=== PATIENT | female | born 1945 | race Caucasian/White ===

== ENCOUNTER 2016-04-23 17:28 | Emergency (ER) | payer MEDICARE ==
[~2016-04-23] VITALS: Ht 167.6 cm; Wt 88.5 kg
[2016-04-23] MEDS ORDERED: IV NORMAL SALINE 1000ML BAG 1,000 ML IV SCH (18:35)
[2016-04-23] MEDS ORDERED: ONDANSETRON PF 4 MG/2 ML VIAL. IV ONE (18:45)
[2016-04-23] MEDS ORDERED: KETOROLAC TROMETHAMINE 30 MG/ML SYRINGE. IV ONE (18:45)
--- NOTE | 2016-04-23 18:59 | EKG ---
[facility] [address] [place] [address] Test Date: 2016-04-23 Test Time: 17:45:12 Pat Name: JOSE D CHACKO Department: Room: Gender: F Supervisor Instrument Repair: : 1945 Requested By: Thalia CANALES Order Number: [id number] Reading MD: Denny San Measurements Intervals [place] Rate: 79 P: 51 WI: 188 QRS: -38 QRSD: 86 T: 35 QT: 398 QTc: 463 Interpretive Statements SINUS RHYTHM POSSIBLE LEFT ATRIAL ABNORMALITY ABNORMAL LEFT AXIS DEVIATION LEFT ANTERIOR FASCICULAR BLOCK QRS(T) CONTOUR ABNORMALITY CONSISTENT WITH ANTEROSEPTAL INFARCT AGE UNDETERMINED Electronically Signed On 04-26-2016 10:27:18 INTRANET SPECIALIST by Denny San
--- NOTE | 2016-04-23 19:23 | PHYS DOC ---
Past Medical History Past Medical History: Depression, GERD, High Cholesterol, Hypertension Past Surgical History: Hysterectomy, Other Additional Past Surgical Histo: HERNIA Alcohol Use: Heavy Additional Information: DRINKS 2 TO 3 SCOTCH & BACA A DAY Drug Use: None Adult General Chief Complaint Chief Complaint: NAUSEA/VOMITING/DIARRHA HPI HPI Patient is a 70 year old female who presents with with multiple episodes of nonbloody nonbilious emesis that started yesterday evening. She has only had 2 episodes of emesis today, but has significant nausea. She also notes developing mild headache to bilateral occiput gradually over this time. She has chills without measured fever. She denies diarrhea, dysuria, chest pain, dyspnea, abdominal pain, vision changes, dizziness, gait instability. She denies sick contacts. She states she usually drinks 3 drinks per day, but stopped drinking due to illness. She denies anxiety or tremor. Review of Systems Review of Systems Constitutional: Denies measured fever [] Eyes: Denies change in visual acuity, redness, or eye pain [] HENT: Denies nasal congestion or sore throat [] Respiratory: Denies cough or shortness of breath [] Cardiovascular: No additional information not addressed in HPI [] GI: Denies abdominal pain, bloody stools or diarrhea [] : Denies dysuria or hematuria [] Musculoskeletal: Denies back pain or joint pain [] Integument: Denies rash or skin lesions [] Neurologic: Denies focal weakness or sensory changes [] Endocrine: Denies polyuria or polydipsia [] Current Medications Current Medications Current Medications Medications (Trade) Dose Ordered Sig/Darrin Start Time Stop Time Status Last Admin Dose Admin Ketorolac Tromethamine (Toradol) 15 mg 1X ONCE 04/23/16 18:45 04/23/16 18:46 DC 04/23/16 18:57 15 MG Ondansetron HCl (Zofran) 4 mg 1X ONCE 04/23/16 18:45 04/23/16 18:46 DC 04/23/16 18:56 4 MG Potassium Chloride (Klor-Con) 40 meq 1X ONCE 04/23/16 20:00 04/23/16 20:01 Sodium Chloride (Iv Sodium Chloride 0.9% 1000ml Bag) 1,000 ml @ 1,000 mls/hr Q1H 04/23/16 18:35 04/23/16 19:34 DC 04/23/16 18:55 1,000 MLS/HR Allergies Allergies Allergies Coded Allergies Type Severity Reaction Last Updated Verified No Known Drug Allergies 04/23/16 No Physical Exam Physical Exam Constitutional: Well developed, well nourished, no acute distress, non-toxic appearance. [] HENT: Normocephalic, atraumatic, bilateral external ears normal, oropharynx moist, no oral exudates, nose normal. [] Eyes: PERRLA, EOMI. [] Neck: Normal range of motion, no tenderness, supple. [] Cardiovascular:Heart rate regular rhythm, no murmur [] Lungs & Thorax: Bilateral breath sounds clear to auscultation [] Abdomen: Bowel sounds normal, soft, no tenderness. [] Skin: Warm, dry, no erythema, no rash. [] Back: No tenderness, no CVA tenderness. [] Extremities: ROM intact, no edema. [] Neurologic: Alert and oriented X 3, normal motor function, normal sensory function, no focal deficits noted. [] Psychologic: Affect normal, judgement normal, mood normal. [] Current Patient Data Vital Signs Vital Signs Date Time Temp Pulse Resp B/P Pulse Ox O2 Delivery O2 Flow Rate FiO2 04/23/16 17:30 98.3 80 24 153/77 100 Room Air 98.3 Lab Values Laboratory Tests Test 04/23/16 19:00 Sodium Level 140mmol/L (136-145) Potassium Level 2.9mmol/L (3.5-5.1) *L Chloride Level 103mmol/L (98-107) Carbon Dioxide Level 25mmol/L (21-32) Anion Gap 12 (6-14) Blood Urea Nitrogen 11mg/dL (7-20) Creatinine 0.6mg/dL (0.6-1.0) Estimated GFR (Cockcroft-Gault) 98.8 Glucose Level 110mg/dL (70-99) H Calcium Level 9.0mg/dL (8.5-10.1) Total Bilirubin 0.5mg/dL (0.2-1.0) Direct Bilirubin 0.1mg/dL (0.0-0.2) Aspartate Amino Transferase (AST) 20U/L (15-37) Alanine Aminotransferase (ALT) 29U/L (14-59) Alkaline Phosphatase 107U/L (46-116) Total Protein 7.0g/dL (6.4-8.2) Albumin 3.5g/dL (3.4-5.0) Lipase 143U/L (73-393) Laboratory Tests 04/23/16 19:00 EKG EKG EKG as interpreted by me as normal sinus rhythm, rate 79, no ST-T changes, normal intervals, no ectopy Course & Med Decision Making Course & Med Decision Making Pertinent Labs and Imaging studies reviewed. (See chart for details) Workup reveals hypokalemia, this was replaced by mouth. She is tolerating oral intake and feeling much better and would like to go home. Return precautions given. She understands and agrees with plan. Dragon Disclaimer Dragon Disclaimer This electronic medical record was generated, in whole or in part, using a voice recognition dictation system. Departure Departure Impression: Primary Impression: Nausea and vomiting Disposition: HOME, SELF-CARE Condition: STABLE Referrals: SITA FREEDMAN (PCP) Patient Instructions: Nausea and Vomiting, [id number] Additional Instructions: Take Phenergan as needed for nausea. Follow-up with your primary care doctor. Return for any concerns. Scripts Promethazine Hcl 25 Mg Tablet1 Tab PO PRN Q6HRS PRN NAUSEA #10 TAB Prov:Thalia CANALES MD 04/23/16 Problem Qualifiers Primary Impression: Nausea and vomiting Vomiting type: unspecified Vomiting Intractability: non-intractable Qualified Code: R11.2 - Nausea with vomiting, unspecified Thalia CANALES MD Apr 23, 2016 19:23
[2016-04-23 19:42] LABS: ALBUMIN 3.5 g/dL (3.4-5.0); CREATININE 0.6 mg/dL (0.6-1.0); DIRECT BILIRUBIN 0.1 mg/dL (0.0-0.2); GFR 98.8; TOTAL BILIRUBIN 0.5 mg/dL (0.2-1.0)
[2016-04-23 19:45] LABS: POTASSIUM 2.9 mmol/L (3.5-5.1)
[2016-04-23] MEDS ORDERED: PROM12.56 PO (19:57)
[2016-04-23] MEDS ORDERED: PROM25TA10 PO (19:58)
[2016-04-23] MEDS ORDERED: POTASSIUM CHLORIDE 20 MEQ TABLET.ER. PO ONE (20:00)
[2016-04-23 20:15] VITALS: BP 178/91
== END 2016-04-23 20:28 | disposition home or self-care (01) ==
LOC: ER 17:28
DX: R11.2 Nausea with vomiting, unspecified (principal); E78.00 Pure hypercholesterolemia, unspecified; I10 Essential (primary) hypertension; K21.9 Gastro-esophageal reflux disease without esophagitis
CPT/HCPCS: 36415; 80048; 80076; 83690; 93005; 96361; 96374; 96375; 99285; J1885; J2405; J7030

== ENCOUNTER → 2020-04-14 | Outpatient (CLI) | payer MEDICARE ==
[~2020-04-14] MED LIST: AMLO-187 PO; CYCL10TA2 PO; FLUO40CA2 PO; FLUT1DIS IH; GUAI600T47 PO; HYDR-2145 PO; LIDO1ADH63 TP; LOSA100T14 PO; MAGN400T5 PO; MULT-121 PO; OMEG10005 PO; OXYC5CAP PO; POTA10TA12 PO; PREG150C PO; PROM12.58 PO; PROM25TA10 PO; UBID30CA9 PO; VENTOLIN HFA18 GM INH; WARF-31 PO
[2020-04-14 09:37] LABS: BASO % 1 % (0-3); EOS # 0.2 x10^3/uL (0.0-0.7); EOS % 4 % (0-3); HEMATOCRIT 39.3 % (36.0-47.0); HEMOGLOBIN 13.8 g/dL (12.0-15.5); LYMPH # 0.9 x10^3/uL (1.0-4.8); LYMPH % 17 % (24-48); MEAN CORPUSCULAR HEMOGLOBIN 32 pg (25-35); MEAN CORPUSCULAR HGB CONC 35 g/dL (31-37); MEAN CORPUSCULAR VOLUME 92 fL (79-100); MONO # 0.5 x10^3/uL (0.0-1.1); MONO % 9 % (0-9); NEUT # 3.9 x10^3/uL (1.8-7.7); NEUT % 70 % (31-73); PLATELET COUNT 248 x10^3/uL (140-400); RED BLOOD COUNT 4.26 x10^6/uL (3.50-5.40); RED CELL DISTRIBUTION WIDTH 11.7 % (11.5-14.5); WHITE BLOOD COUNT 5.6 x10^3/uL (4.0-11.0)
[2020-04-14 09:44] LABS: ALBUMIN 3.7 g/dL (3.4-5.0); C-REACTIVE PROTEIN 2.9 mg/L (0-3.3); CALCIUM 8.8 mg/dL (8.5-10.1); CREATININE 0.7 mg/dL (0.6-1.0); GFR 81.8; POTASSIUM 4.3 mmol/L (3.5-5.1)
--- NOTE | 2020-04-14 13:21 | EKG ---
[facility] [address] [place] [address] Test Date: 2020-04-14 Test Time: 12:58:26 Pat Name: JOSE D CHACKO Department: Room: Gender: F Cherry Pitter: MR MOCTEZUMAB: 1945 Requested By: SHAAN NAVA Order Number: [id number] Reading MD: Davie Kwan Measurements Intervals [place] Rate: 79 P: 37 MN: 192 QRS: -31 QRSD: 84 T: 12 QT: 384 QTc: 441 Interpretive Statements SINUS RHYTHM ABNORMAL LEFT AXIS DEVIATION LEFT ANTERIOR FASCICULAR BLOCK QRS(T) CONTOUR ABNORMALITY CONSIDER ANTEROSEPTAL MYOCARDIAL DAMAGE ABNORMAL ECG Electronically Signed On 04-14-2020 16:19:59 PAMPHLET DISTRIBUTOR by Davie Kwan
--- NOTE | 2020-04-14 14:22 | RAD ---
EXAM: Chest, 2 views. HISTORY: Hypertension COMPARISON: None. FINDINGS: 2 views of the chest are obtained. There are suspected chronic interstitial changes. There is no consolidation, pleural effusion or pneumothorax. The heart is normal in size IMPRESSION: No acute pulmonary finding. Electronically signed by: Nusrat Araya MD (04/14/2020 2:19 PM) [id number]
[2020-04-15 00:11] LABS: HEMOGLOBIN A1C 5.8 % (4.8-5.6)
== END ==
LOC: SURGPAT 12:56
PROVIDERS: ATTEND Orthopaedic Surgery
DX: Z01.818 Encounter for other preprocedural examination (principal); M16.52 Unilateral post-traumatic osteoarthritis, left hip; Z96.652 Presence of left artificial knee joint
CPT/HCPCS: 36415; 71046; 80048; 82040; 82306; 83036; 85025; 85610; 85730; 86140; 87641; 93005

== ENCOUNTER → 2020-05-02 | Outpatient (CLI) | payer MEDICARE ==
--- NOTE | 2020-05-02 16:22 | CARD ---
MR#: [id number] Date of Study: 05/02/2020 Ordering Physician: RITA ISAAC, Referring Physician: RITA ISAAC, Tech: Rachna Stern, [facility] APPROVED REPORT EXAM: Two-dimensional and M-mode echocardiogram with Doppler and color Doppler. Other Information Quality : AverageHR: 74bpm INDICATION Pre-Op RISK FACTORS Hypertension 2D DIMENSIONS RVDd3.2 (2.9-3.5cm)Left Atrium(2D)3.3 (1.6-4.0cm) IVSd1.6 (0.7-1.1cm)Aortic Root(2D)3.0 (2.0-3.7cm) LVDd4.2 (3.9-5.9cm)LVOT Diameter2.1 (1.8-2.4cm) PWd1.1 (0.7-1.1cm)LVDs3.5 (2.5-4.0cm) FS (%) 17.8 %SV29.8 ml LVEF(%)37.3 (>50%) Aortic Valve AoV Peak Anirudh.164.8cm/sAoV VTI27.6cm AO Peak GR.10.9mmHgLVOT Peak Anirudh.125.6cm/s LVOT VTI 26.13cmAO Mean GR.6mmHg CHUCHO (VMAX)1.92iv4MQH (VTI)3.18cm2 Mitral Valve MV E Rwclofqj37.0cm/sMV DECEL YKDQ320vo MV A Wexbugys778.3cm/sMV E Mean Gr.3mmHg MV DSC350qyG/A Ratio0.5 MVA (PHT)2.13cm2 TDI E/Lateral E'12.4E/Medial E'12.1 Pulmonary Valve PV Peak Ilzywdgv74.3cm/sPV Peak Grad.4mmHg Tricuspid Valve TR P. Getwauiw972qc/sRAP ELQOTZBP5deEc TR Peak Gr.86gmFwJEZU69uvLq LEFT VENTRICLE The left ventricle is normal size. There is mild to moderate concentric left ventricular hypertrophy. The left ventricular systolic function is normal and the ejection fraction is within normal range. T he Ejection Fraction is 50-55%. There is normal LV segmental wall motion. Transmitral Doppler flow pa ttern is Grade I-abnormal relaxation pattern. RIGHT VENTRICLE The right ventricle is normal size. There is normal right ventricular wall thickness. The right ventr icular systolic function is normal. ATRIA The left atrium size is normal. The right atrium size is normal. The interatrial septum is intact wit h no evidence for an atrial septal defect or patent foramen ovale as noted on 2-D or Doppler imaging. AORTIC VALVE The aortic valve is trileaflet but appears moderately thickened. Doppler and Color Flow revealed trac e aortic regurgitation. There is no significant aortic valvular stenosis. Calculated aortic valve are a is 3.4 cm2 with maximum pressure gradient of 13 mmHg and mean pressure gradient of 6 mmHg. MITRAL VALVE The mitral valve is normal in structure and function. There is no evidence of mitral valve prolapse. There is no mitral valve stenosis. Doppler and Color-flow revealed trace mitral regurgitation. TRICUSPID VALVE The tricuspid valve is normal in structure and function. Doppler and Color Flow revealed trace tricus pid regurgitation with an estimated PAP of 26 mmHg. There is no tricuspid valve stenosis. PULMONIC VALVE The pulmonic valve is not well visualized. Doppler and Color Flow revealed trace pulmonic valvular re gurgitation. There is no pulmonic valvular stenosis. GREAT VESSELS The aortic root is normal in size. The ascending aorta is Mildly dilated measuring 3.8 cm. The IVC is normal in size and collapses >50% with inspiration. PERICARDIAL EFFUSION There is no evidence of significant pericardial effusion. Critical Notification Critical Value: No <Conclusion> The left ventricular systolic function is normal and the ejection fraction is within normal range. Th e Ejection Fraction is 50-55%. There is normal LV segmental wall motion. The ascending aorta is mildly dilated measuring 3.8 cm. Signed by : Denny San, Electronically Approved : 05/02/2020 16:22:33
== END ==
LOC: ECHO 08:50
PROVIDERS: ATTEND Internal Medicine Cardiovascular Disease
DX: Z01.810 Encounter for preprocedural cardiovascular examination (principal); I51.7 Cardiomegaly
CPT/HCPCS: 93306

== ENCOUNTER → 2020-05-02 | Outpatient (CLI) | payer MEDICARE | LOC: LAB 08:45 | PROVIDERS: ATTEND Orthopaedic Surgery | DX: Z01.812 Encounter for preprocedural laboratory examination (principal); M16.12 Unilateral primary osteoarthritis, left hip; Z20.822 Contact with and (suspected) exposure to COVID-19 | CPT/HCPCS: 87426; U0003 ==

== ENCOUNTER 2020-05-06 08:39 | Observation (INO) | payer MEDICARE, OTHER ==
[2020-05-06] VITALS (7 sets, daily range): BP systolic 104–142; BP diastolic 73–91
[~2020-05-06] VITALS: Ht 167.6 cm; Wt 88.0 kg
[~2020-05-06 08:39] MED LIST changes: +ACETAMINOPHEN 500 MG TABLET PO PRN; +GABAPENTIN 300 MG CAPSULE. PO PRN; +IV RINGERS,LACTATED 1000ML 1,000 ML IV SCH; +MELOXICAM 7.5 MG TABLET PO PRN; +MORPHINE SULFATE 5 MG, KETOROLAC 30MG VIAL 30 MG, ROPIVacaine 0.5% PF 60 ML, EPINEPHrin... INT ART ONE; -OXYC5CAP PO; +TRANEXAMIC ACID 1,000 MG in IV NS 50ML -- 1ST BAG INJ ONE; +TRANEXAMIC ACID 1,000 MG in IV NS 50ML -- 2ND BAG INJ ONE; -WARF-31 PO; +fentaNYL PF VIAL 100 MCG/2 ML VIAL IVP PRN
[2020-05-06] MEDS ORDERED: TRANEXAMIC ACID in NS IVPB 100 ML ONE (11:47)
[2020-05-06] MEDS ORDERED: NEOSTIGMINE METHYLSULFATE 5 MG/5 ML SYRINGE. ONE (11:48)
[2020-05-06] MEDS ORDERED: PROPOFOL 10 MG/ML (20ML) VIAL. IV ONE (11:48)
[2020-05-06] MEDS ORDERED: ROCURONIUM 50 MG/5 ML VIAL. ONE (11:48)
[2020-05-06] MEDS ORDERED: fentaNYL PF VIAL 100 MCG/2 ML VIAL ONE ×2 (11:48→15:53)
[2020-05-06] MEDS ORDERED: PHENYLEPHRINE in 0.9% NACL PF 1 MG/10 ML SYRINGE. IV ONE (11:48)
[2020-05-06] MEDS ORDERED: SEVOFLURANE > 120 MINUTES. IH ONE (11:48)
[2020-05-06] MEDS ORDERED: GLYCOPYRROLATE 1 MG/5 ML VIAL. ONE (11:48)
[2020-05-06] MEDS ORDERED: LIDOCAINE 2% PF 5 ML VIAL. ONE (11:49)
[2020-05-06] MEDS ORDERED: ONDANSETRON PF 4 MG/2 ML VIAL. ONE (11:49)
[2020-05-06] MEDS ORDERED: DEXAMETHASONE SOD PHOS 4 MG/ML VIAL ONE (11:49)
[2020-05-06] MEDS ORDERED: WARF-31 PO (11:51)
[2020-05-06 12:19] LABS: PROTHROMBIN TIME PATIENT 12.9 SEC (11.7-14.0)
[2020-05-06] MEDS ORDERED: VANCOMYCIN 1 GM VIAL. ONE ×2 (13:02→15:17)
[2020-05-06] MEDS ORDERED: ePHEDrine PF IN SALINE 50 MG/10 ML SYRINGE. IV ONE (14:13)
[2020-05-06] MEDS: fentaNYL PF VIAL 100 MCG/2 ML VIAL IVP PRN ×2 (15:58→16:02)
--- NOTE | 2020-05-06 15:59 | PDOC4 ---
Operative Note Operative Note Date of surgery: 05/06/2020 Preoperative diagnosis: Degenerative joint disease left hip Postoperative diagnosis: Same Operative procedure: Left total hip arthroplasty with posterior approach Surgeon Nithin [place] Driver: Daniel calvillo Anesthesia: General Estimated blood loss: 200 cc Complications: None Drains: None Operative indications: Please see my orthopedic clinic note and dictated history and physical for detailed operative indications and note that we covered risks benefits postoperative course of the procedure. All her questions were answered and she wishes to proceed with surgical evaluation and treatment having given informed consent Operative text: Patient was identified procedure verified patient placed in the lateral decubitus position on the operating table using the Stulberg hip positioner after adequate amounts of general anesthesia were administered. All bony prominences were well-padded and left hip was prepped and draped in the standard sterile fashion. After timeout was performed patient procedure identified and verified an incision was made curvilinear centered over the greater trochanter and dissection carried out down to the iliotibial band and gluteal fascia which were split in line with their fibers. A Charnley retractor was placed external rotators were divided from their insertion and hip capsule was split in a T fashion. Hip was then dislocated and femoral neck cut was made using a Freida Avenir broach for reference and the femoral head was removed and sized noting severe degenerative change and sent for pathological evaluation. Reaming was carried out from a size 49 to a size 53 with a size 54 cluster hole cup placed in proper version and alignment and achieved a very solid scratch fit and therefore no screw fixation was applied. A 36 mm vitamin E liner was impacted into place. Femur was then prepared with a box osteotome rattail rasp and successive size broaching up to a size 5 femoral trial broach which provided excellent stability and fit within the canal. Trial fitting with a +3.5 36 mm head with a high offset neck to reproduce leg length and offset appropriately. Trial components were removed and a size 5 high offset collared Avenir stem was impacted into place with a +3.5 ceramic 36 mm head impacted to secure the Kwan taper. Excellent stability and range of motion were noted and leg length reproduced according to measurements from the contralateral side. Thorough irrigation carried out with dilute Betadine solution and then washed further with normal saline solution and pulse lavage. Intra-articular mixture was i njected subperiosteally throughout the joint capsule and subcutaneous areas. Hip capsule was repaired with max braid suture and external rotators attached transosseously with max braid suture. Fascia was closed with #1 PDS strata fix suture in a running fashion subcutaneous closure with buried Vicryl skin closure with subcuticular Monocryl and a rita dressing was applied. Patient was returned to recovery room in stable condition having tolerated the procedure well. Daniel calvillo was present for the procedure and assisted in the patient positioning prepping draping retraction closure and dressings SHAAN NAVA MD May 06, 2020 15:59
[2020-05-06] MEDS ORDERED: PROCHLORPERAZINE 5 MG TABLET. PO PRN (16:00)
[2020-05-06] MEDS ORDERED: DEXTROSE 50% 25 GM / 50ML DISP.SYRIN. IV PRN (16:00)
[2020-05-06] MEDS ORDERED: ZOLPIDEM 5 MG TABLET. PO PRN (16:00)
[2020-05-06] MEDS ORDERED: MORPHINE SULFATE 2 MG/ML VIAL. IVP PRN (16:00)
[2020-05-06] MEDS ORDERED: diphenhydrAMINE 50 MG/ML VIAL IVP PRN (16:00)
[2020-05-06] MEDS ORDERED: CALCIUM CARBONATE 500 MG TAB.CHEW PO PRN (16:00)
[2020-05-06] MEDS ORDERED: fentaNYL PF VIAL 100 MCG/2 ML VIAL IVP PRN (16:00)
[2020-05-06] MEDS ORDERED: 0.9 % SODIUM CHLORIDE 10 ML DISP.SYRIN. IV PRN (16:00)
[2020-05-06] MEDS ORDERED: MORPHINE SULFATE 2 MG/ML VIAL. ONE (16:06)
[2020-05-06] MEDS: MORPHINE SULFATE 2 MG/ML VIAL. IVP PRN ×2 (16:10→16:17)
[2020-05-06] MEDS ORDERED: LIDOCAINE (700MG/PATCH) PATCH. TP PRN (16:15)
[2020-05-06] MEDS ORDERED: HYDROmorphone 2 MG/ML VIAL ONE (16:24)
[2020-05-06] MEDS: HYDROmorphone 2 MG/ML VIAL IVP PRN ×4 (16:26→16:52)
[2020-05-06] MEDS ORDERED: ALBUTEROL SULFATE 2.5 MG/3 ML NEBU. NEB PRN (16:30)
[2020-05-06] MEDS ORDERED: PROCHLORPERAZINE 10 MG/2 ML VIAL. ONE (16:31)
[2020-05-06] MEDS: PROCHLORPERAZINE 10 MG/2 ML VIAL. IVP PRN ×2 (16:32→16:46)
--- NOTE | 2020-05-06 16:43 | RAD ---
EXAM: XR BILATERAL HIP (WITH OR WITHOUT PELVIS) LEFT 2 VIEWS 05/06/2020 4:08 PM CLINICAL INDICATION: Postop left total hip COMPARISON: Left hip radiograph 01/28/2020 TECHNIQUE: AP view of the pelvis and AP and crosstable lateral view of the left hip FINDINGS: There is a new left total hip prosthesis in expected alignment. No periprosthetic fracture . Expected postoperative soft tissue gas in the left thigh. Mild medial right hip joint space narrowi ng is unchanged. There is a 8 mm ovoid sclerotic focus projecting over the right inferior pubic ramus . Lumbar degenerative disc disease is noted. IMPRESSION: 1. Immediate postoperative changes of left total hip arthroplasty. 2. Mild right hip osteoarthrosis. 3. Unchanged 8 mm sclerotic focus projecting over the right inferior pubic ramus. Bone island or othe r sclerotic bone lesion is possible. Electronically signed by: Yadira Coker MD (05/06/2020 4:40 PM) [id number]
[2020-05-06] MEDS ORDERED: WARFARIN 7.5 MG TABLET. PO ONE (17:00)
--- NOTE | 2020-05-06 17:25 | NUR ---
Late entry: Admitted to unit by bed from PACU. Drowsy but awakens. C/o being hot. Resting on right side with pillow between knees. Dressing on right hip d/i. SCD's on bilaterally with TEDS. O2 at 4l per n/c and sating 97%. IVF's intact and infusing. Side rails up x's 3 with call light in reach. Got pt a fan and turn down thermostat. Cont. monitor.
[2020-05-06] MEDS: ALBUTEROL SULFATE 2.5 MG/3 ML NEBU. NEB SCH (19:55)
[2020-05-06] MEDS: BUDESONIDE 0.5 MG/2 ML NEBU. NEB SCH (19:56)
[2020-05-06] MEDS: PREGABALIN 75 MG CAPSULE PO SCH (20:27)
[2020-05-06] MEDS: CYCLOBENZAPRINE 10 MG TABLET. PO SCH (20:27)
[2020-05-06] MEDS: PATCH REMOVAL. MC SCH (20:28)
[2020-05-06] MEDS: ONDANSETRON PF 4 MG/2 ML VIAL. IVP SCH (20:38)
[2020-05-06] MEDS: ONDANSETRON ODT 4 MG TAB.RAPDIS. PO SCH (20:39)
[2020-05-07] MEDS: ONDANSETRON PF 4 MG/2 ML VIAL. IVP SCH ×3 (00:48→12:00)
[2020-05-07] MEDS: oxyCODONE IR 5 MG TABLET PO PRN ×3 (00:49→20:42)
[2020-05-07] MEDS: ONDANSETRON ODT 4 MG TAB.RAPDIS. PO SCH ×3 (00:49→12:00)
[2020-05-07 01:47] VITALS: BP 148/76
--- NOTE | 2020-05-07 01:48 | NUR ---
Patient had attempted to void without success. Patient states "I want to try later, I don't have the urge yet." Informed Patient of need to void or will need straight catheter placed to empty bladder. Patient wanting to try later. Call light in reach, will monitor.
--- NOTE | 2020-05-07 04:07 | NUR ---
Patient attempted to void and unsuccessful. Bladder scan revealed 322 cc. Patient drinking water and declined straight catheter at this time. Patient states "I'LL drink this water and try again. Call light in reach.
[2020-05-07 04:46] LABS: PROTHROMBIN TIME PATIENT 13.3 SEC (11.7-14.0)
[2020-05-07] MEDS: IV NORMAL SALINE 1000ML BAG 1,000 ML IV SCH ×2 (05:05→17:06)
[2020-05-07] MEDS: traMADol 50 MG TABLET PO SCH ×4 (05:06→23:17)
[2020-05-07 05:12] VITALS: BP 166/80
--- NOTE | 2020-05-07 05:13 | NUR ---
Patient up to restroom, voided 100cc clear yellow urine in hat and void x 1 missed hat. Patient 0600 Tramadol given early per Patient request so she can sleep.
[2020-05-07] MEDS ORDERED: MAGNESIUM HYDROXIDE 2,400 MG/30 ML ORAL.SUSP. PO PRN (06:00)
[2020-05-07] MEDS ORDERED: GABAPENTIN 100 MG CAPSULE. PO SCH (06:00)
[2020-05-07] MEDS: BUDESONIDE 0.5 MG/2 ML NEBU. NEB SCH ×2 (07:31→20:57)
[2020-05-07] MEDS: ALBUTEROL SULFATE 2.5 MG/3 ML NEBU. NEB SCH ×2 (07:31→20:57)
[2020-05-07] MEDS: FERROUS SULFATE 325 MG TABLET. PO SCH ×2 (08:16→17:05)
[2020-05-07] MEDS: CYCLOBENZAPRINE 10 MG TABLET. PO SCH ×2 (08:16→20:42)
[2020-05-07] MEDS: FLUoxetine HCL 20 MG CAPSULE PO SCH (08:17)
[2020-05-07] MEDS: MULTIVITAMIN with MINERAL TABLET. PO SCH (08:17)
[2020-05-07] MEDS: ACETAMINOPHEN 500 MG TABLET PO SCH ×4 (08:17→23:17)
[2020-05-07] MEDS: POTASSIUM CHLORIDE 10 MEQ TABLET.ER. PO SCH (08:17)
[2020-05-07] MEDS: SENNOSIDES/DOCUSATE 8.6/50MG TABLET. PO SCH (08:17)
[2020-05-07] MEDS: MELOXICAM 7.5 MG TABLET PO SCH (08:18)
[2020-05-07] MEDS: PREGABALIN 75 MG CAPSULE PO SCH ×3 (08:18→20:43)
--- NOTE | 2020-05-07 08:24 | PDOC ---
PROGRESS NOTES Date of Service DATE: 05/07/20 TIME: 08:17 Subjective Subjective Problems overnight: Up and around to the bathroom, hip is sore but functional, eating well no other complaints Objective Vital Signs Vital Signs Date Time Temp Pulse Resp B/P (MAP) Pulse Ox O2 Delivery O2 Flow Rate FiO2 05/07/20 07:32 98 Room Air 05/07/20 06:06 20 05/07/20 05:12 97.9 84 166/80 (108) 97.9 05/06/20 23:14 2.0 Physical Exam Hip incision clean dry intact with rita dressing intact, distal neurovascular status intact Labs Laboratory Tests Test 05/06/20 11:50 05/07/20 03:40 Prothrombin Time 12.9 SEC (11.7-14.0) 13.3 SEC (11.7-14.0) Prothromb Time International Ratio 1.0 (0.8-1.1) 1.1 (0.8-1.1) Activated Partial Thromboplast Time 30 SEC (24-38) Laboratory Tests Test 05/06/20 11:50 05/07/20 03:40 Prothrombin Time 12.9 SEC (11.7-14.0) 13.3 SEC (11.7-14.0) Prothromb Time International Ratio 1.0 (0.8-1.1) 1.1 (0.8-1.1) Activated Partial Thromboplast Time 30 SEC (24-38) Imaging Excellent positioning total hip arthroplasty Assessment Assessment POD#1 left total hip arthroplasty Plan Plan of Care Mobilize with physical therapy standard total hip precautions weightbearing as tolerated Warfarin anticoagulation per pharmacy Postop placement when stable Justicifation of Admission Dx: Justifications for Admission: Justification of Admission Dx: Yes (Requiring IV pain medications, currently adjusting) SHAAN NAVA MD May 07, 2020 08:24
[2020-05-07] MEDS: hydroCHLOROthiazide 25 MG TABLET PO SCH (08:28)
[2020-05-07] MEDS: amLODIPine BESYLATE 10 MG TABLET PO SCH (08:29)
[2020-05-07] MEDS: LOSARTAN POTASSIUM 50 MG TABLET. PO SCH (08:30)
[2020-05-07 09:24] LABS: HEMATOCRIT 33.3 % (36.0-47.0); HEMOGLOBIN 11.3 g/dL (12.0-15.5)
[2020-05-07] MEDS ORDERED: ONDANSETRON ODT 4 MG TAB.RAPDIS. PO PRN (12:00)
[2020-05-07] MEDS ORDERED: ONDANSETRON PF 4 MG/2 ML VIAL. IVP PRN (12:00)
--- NOTE | 2020-05-07 12:14 | NUR ---
Tolerating diet and taking fluids well. No c/o nausea. Zofran not given.
[2020-05-07] MEDS ORDERED: BISACODYL 10 MG SUPP.RECT. PR PRN (16:00)
--- NOTE | 2020-05-07 16:11 | NUR ---
Pharmacy Warfarin Dosing Note S:Pharmacy consulted to assist with anticoagulation therapy started with target INR: 1.6 - 2.5 O:JOSE D CHACKO is a 74 year old F with LULU LABS: Last INR: 1.1 Last HGB: 11.3 Last HCT: 33.3 Last PLT: Last dose of 7.5 mg given on 05/06/20 at 2029 Previous Regimen: Vitamin K given: Drug Interaction Changes: Ongoing Drug Interactions: A:INR of 1.1 is below desired range. Target range for this patient is: 1.6 - 2.5 P: Warfarin dose: 5 mg Today at 1600 Bridge Therapy: Next INR due IN AM Pharmacy anticoagulation service will continue to follow. JUAN CARLOS [facility], 05/07/20 1619
[2020-05-07] MEDS ORDERED: WARFARIN 5 MG TABLET. PO ONE (16:30)
[2020-05-07 17:59] VITALS: BP 131/73
[2020-05-07] MEDS: PATCH REMOVAL. MC SCH (20:43)
[2020-05-08] MEDS: oxyCODONE IR 5 MG TABLET PO PRN ×4 (04:41→16:06)
[2020-05-08] MEDS: traMADol 50 MG TABLET PO SCH ×2 (06:15→12:07)
[2020-05-08 06:18] VITALS: BP 138/77
[2020-05-08] MEDS: ALBUTEROL SULFATE 2.5 MG/3 ML NEBU. NEB SCH (07:19)
[2020-05-08] MEDS: BUDESONIDE 0.5 MG/2 ML NEBU. NEB SCH (07:19)
[2020-05-08] MEDS: MULTIVITAMIN with MINERAL TABLET. PO SCH (08:29)
[2020-05-08] MEDS: hydroCHLOROthiazide 25 MG TABLET PO SCH (08:29)
[2020-05-08] MEDS: CYCLOBENZAPRINE 10 MG TABLET. PO SCH (08:32)
[2020-05-08] MEDS: PREGABALIN 75 MG CAPSULE PO SCH ×2 (08:32→15:14)
[2020-05-08] MEDS: MELOXICAM 7.5 MG TABLET PO SCH (08:32)
[2020-05-08] MEDS: FERROUS SULFATE 325 MG TABLET. PO SCH ×2 (08:32→15:16)
[2020-05-08] MEDS: ACETAMINOPHEN 500 MG TABLET PO SCH ×2 (08:32→15:15)
[2020-05-08] MEDS: SENNOSIDES/DOCUSATE 8.6/50MG TABLET. PO SCH (08:33)
[2020-05-08] MEDS: POTASSIUM CHLORIDE 10 MEQ TABLET.ER. PO SCH (08:33)
[2020-05-08] MEDS: FLUoxetine HCL 20 MG CAPSULE PO SCH (08:33)
[2020-05-08] MEDS ORDERED: OXYC5CAP PO (08:38)
--- NOTE | 2020-05-08 08:41 | SNU/HH DC ---
DISCHARGE WITH HOME HEALTH DISCHARGE INFORMATION: Condition on Discharge: Stable CODE STATUS: Code Status: Full HOME HEALTH: Face to Face: I certify this patient is under my care and that I, or a nurse practitioner or physician's hotel assistant general manager working with me, had a face to face encounter that meets the physician face to face encounter requirements with this patient on [05/08/2020]. Medical Complications: S/P Joint Replacement Retirement For: Assess/Skilled Observatio RN For Eval/Treatment: Yes Physical Therapy For: Evalulation/Treatment Pt Meets Homebound Status: Limited distance walking POST DISCHARGE ORDERS: Activity Instructions for Disc: Other, see below (Avoid extreme hip flexion or any internal rotation) Weight Bearing Status after Di: As tolerated Bathing Instructions: Shower-keep dressing dry, No Tub Bath until see DIET AFTER DISCHARGE: Regular Wound/Incision Care: Do not change dressing (Call if dressing saturated, otherwise keep dressing intact and when suction stops, cut tail and tape over to maintain seal) FOLLOW-UP: Follow up with: Dr. Weller 2 weeks postop, [phone] for appointment Warfarin Follow UP: [place] pharmacy to direct warfarin dosage and testing TREATMENT/EQUIPMENT ORDERS: Adaptive Equipment Issued: Front wheeled walker CERTIFICATION STATEMENT: Certification Statement: Certification Statement: Based on the above finding, I certify that this patient is confined to the home and needs intermittent senior living care, physical therapy and/or speech therapy, or continues to need occupational therapy.~ This patient is under my care, and I have initiated the establishment of the plan of care.~ This patient will be followed by myself or a community physician who will periodically review the plan of care. Home Meds Reported Medications Warfarin Sodium (WARFARIN SODIUM) 5 Mg Tablet, 5 MG PO x1 PRN for hs surgery, #30 TAB 05/06/20 Potassium Chloride (POTASSIUM CHLORIDE ) 10 Meq Tab.sr.24h, 8 MEQ PO DAILY for SUPPLEMENT, TAB.SR 05/01/20 Guaifenesin (MUCINEX) 600 Mg Tablet.er, 800 MG PO BID for control mucous, TAB.SR 05/01/20 [place]-3 Fatty Acids (OMEGA-3) 1,000 Mg Capsule, 1000 MG PO DAILY for supplement, CAP 05/01/20 Magnesium Oxide (MAGNESIUM OXIDE) 400 Mg Tablet, 400 MG PO DAILY for supplement, TAB 05/01/20 Hydrochlorothiazide (HYDROCHLOROTHIAZIDE TABLET ) 25 Mg Tablet, 25 MG PO DAILY for DIURETIC, TAB 0 Refills 05/01/20 Fluoxetine Hcl (FLUOXETINE HCL) 40 Mg Capsule, 40 MG PO DAILY for depression, CAP 05/01/20 Cyclobenzaprine Hcl (CYCLOBENZAPRINE HCL) 10 Mg Tablet, 10 MG PO BID for muscle spasm/pain, TAB 05/01/20 Multivitamin (MULTIPLE VITAMINS) 1 Each Tablet, 1 EACH PO DAILY for supplement, TAB 05/01/20 Ubidecarenone (COQ-10) 30 Mg Capsule, 30 MG PO DAILY for supplement, CAP 05/01/20 Amlodipine Besylate (AMLODIPINE BESYLATE) 10 Mg Tablet, 10 MG PO DAILY for bp control, TAB 05/01/20 Albuterol Sulfate (VENTOLIN HFA INHALER) 18 Gm Hfa.aer.ad, 2 PUFF INH PRN Q4- 6HRS PRN for wh, EACH 0 Refills 05/01/20 Fluticasone/Salmeterol (ADVAIR 100-50 DISKUS) 1 Each Disk.w.dev, 1 INH IH BID for asthma, EACH 05/01/20 Pregabalin (LYRICA) 150 Mg Capsule, 150 MG PO TID for depression for 30 Days, CAP 0 Refills 05/01/20 Losartan Potassium (LOSARTAN POTASSIUM) 100 Mg Tablet, 100 MG PO DAILY for HYPERTENSION, TAB 05/01/20 Lidocaine (Lidocaine) 1 Each Adh..patch, 1 EACH TP PRN DAILY PRN for back pain, PATCH 05/01/20 SHAAN WELLER MD May 08, 2020 08:41
[2020-05-08 09:51] LABS: PROTHROMBIN TIME PATIENT 15.6 SEC (11.7-14.0)
--- NOTE | 2020-05-08 11:14 | NUR ---
Pharmacy Warfarin Dosing Note S: Pharmacy consulted to assist with anticoagulation therapy started 05/05/20 O: JOSE D CHACKO is a 74 year old F with LULU LABS: Last INR: 1.3 Last HGB: 11.3 Last HCT: 33.3 Last PLT: Last dose of 5 mg given on 05/07/20 at 1705 A:INR of 1.3 is below desired range. Target range for this patient is: 1.6 - 2.5 P: Warfarin dose: 5 mg prior to discharge and daily Bridge Therapy: none Next INR due Friday 05/12 to be drawn by LADARIUS RN Pharmacy anticoagulation service will continue to follow. Mirella Lord RPH, 05/08/20 [id number]
[2020-05-08] MEDS: LOSARTAN POTASSIUM 50 MG TABLET. PO SCH (12:08)
[2020-05-08] MEDS: amLODIPine BESYLATE 10 MG TABLET PO SCH (12:08)
[2020-05-08 12:10] VITALS: BP 140/77
[2020-05-08 12:30] LABS: HEMATOCRIT 30.6 % (36.0-47.0); HEMOGLOBIN 10.6 g/dL (12.0-15.5)
[2020-05-08] MEDS ORDERED: WARF-31 PO (12:45)
[2020-05-08] MEDS ORDERED: WARFARIN 5 MG TABLET. PO SCH (13:00)
[2020-05-08 16:00] VITALS: BP 144/77
--- NOTE | 2020-05-08 16:09 | NUR ---
reviewed written discharge instructions with Juliana. reviewed home services such as OT,PT and lab draws. reviewed new medications such as pain medication and side effects. reviewed restrictions to activities of daily living such as bathing. she has an Aquacel and care of this.restrictions to driving Hip precautions and follow up with Dr. Weller. she verbalized understanding of these. verbalized understanding of Coumadin and to start tomorrow. saline lock removed. personal belongings packed
--- NOTE | 2020-05-12 21:39 | PATHOLOGY ---
[facility] Accession Number: [id number] . 01 Material submitted: . femur - LEFT FEMORAL HEAD. Modifiers: left, head . 01 Clinical history: . OSTEOARTHRITIS . 02 Diagnosis: Femoral head and focal attached synovial tissue, left total hip arthroplasty: - Advanced degenerative arthritis with focal subarticular cystic degeneration. (JPM:[facility] 05/12/2020) [facility] 05/12/2020 1020 Local . 02 Comment: There is no evidence of malignancy. (JP:[facility] 05/12/2020) . 02 Electronically signed: . Panda Steele MD, Pathologist NPI- [id number] . 01 Gross description: . Received in formalin labeled "Juliana Henning, left femoral head" is a femoral head measuring 5.7 x 5.6 x 4.7 cm. The bone resection margin is smooth and consistent with a surgical margin. The articular surface displays roughening and eburnation covering 75% of the surface. Peripheral osteophytes are present. Upon sectioning, a oro-white cystic structure is present within the bone measuring 1.2 cm in greatest dimension. Also present in the container are multiple oro-brown friable bone fragments measuring in aggregate 9.6 x 9.0 x 2.6 cm. A site safety representative cross-section of the femoral head is submitted in cassettes A1-A4 following decalcification. ([facility]; 05/08/2020) [facility] 05/08/2020 1628 Local . 02 Pathologist provided ICD-10: M16.12 . 02 CPT . 943467, [id number] Specimen Comment: A courtesy copy of this report has been sent to [phone] Specimen Comment: Report sent to / Performed at: 01 [facility] [address], [place], [place] [id number] MD Agustín Campos MD Phone: [phone] Performed at: 02 [facility] [address] [place], [place] [id number] MD Panda Steele MD Phone: [phone]
--- NOTE | 2020-05-14 07:15 | DS ---
DATE OF DISCHARGE: 05/08/2020 ORTHOPEDIC DISCHARGE SUMMARY PRINCIPAL DIAGNOSIS: Degenerative joint disease, left hip. PROCEDURE: Left total hip arthroplasty. DISPOSITION: Home with home health. DISPOSITION MEDICATIONS: Oxycodone 5 mg p.o. q.4 hours p.r.n. pain; warfarin as directed by anticoagulation clinic; continue preoperative medications. BRIEF DESCRIPTION OF HOSPITAL COURSE: The patient underwent an uncomplicated posterior-approach total hip arthroplasty and was noted to have some difficulties with postop nausea and vomiting, which was treated with antinausea medications and adjustment of her pain medications. She was otherwise doing well in terms of the hip transferring and ambulation, maintaining her total hip precautions; progressed well with physical therapy; and on resolution of her nausea issues, was discharged home with home health in stable condition. SHAAN NAVA MD DR: JEWEL/kerri JOB#: [id number] / [id number]
== END 2020-05-08 17:00 | disposition home health service (06) ==
LOC: OPSVCIP 11:20 → INTOOBSV 11:20 → 4 SOUTHEST 17:25
PROVIDERS: ADMIT Orthopaedic Surgery; ATTEND Orthopaedic Surgery
DX: M16.12 Unilateral primary osteoarthritis, left hip (principal); Z96.642 Presence of left artificial hip joint; Z79.899 Other long term (current) drug therapy
CPT/HCPCS: 27130; 36415; 73502; 85014; 85018; 85610; 85730; 86850; 86900; 86901; 88304; 88311; 94640; 94760; 96365; 96366; 97116; 97150; 97162; 97166; 97530; 97535; C1776; G0378; G0379; J0171; J0690; J0780; J1100; J1170; J1885; J2270; J2370; J2405; J2704; J2710; J2795; J3010; J3370; J3490; J7120; J7613; J7626

== ENCOUNTER → 2020-10-17 | Outpatient (CLI) | payer MEDICARE ==
[~2020-10-17] MED LIST changes: -ACETAMINOPHEN 500 MG TABLET PO PRN; -GABAPENTIN 300 MG CAPSULE. PO PRN; +IOHEXOL 180 MG/ML 10 ML VIAL. ONE; -IV RINGERS,LACTATED 1000ML 1,000 ML IV SCH; -MELOXICAM 7.5 MG TABLET PO PRN; -MORPHINE SULFATE 5 MG, KETOROLAC 30MG VIAL 30 MG, ROPIVacaine 0.5% PF 60 ML, EPINEPHrin... INT ART ONE; +OMEP20CA16 PO; +OXYC5CAP PO; -TRANEXAMIC ACID 1,000 MG in IV NS 50ML -- 1ST BAG INJ ONE; -TRANEXAMIC ACID 1,000 MG in IV NS 50ML -- 2ND BAG INJ ONE; +WARF-31 PO; -fentaNYL PF VIAL 100 MCG/2 ML VIAL IVP PRN; +methylPREDNISolone ACETATE 40 MG/ML VIAL. ONE; +methylPREDNISolone ACETATE 80 MG/ML VIAL. ONE
--- NOTE | 2020-10-17 13:28 | PDOC1 ---
INITIAL PAIN CONSULT DATE OF SERVICE: DOS: DATE: 10/17/20 TIME: 13:23 CHIEF COMPLAINT: Chief Complaint: Low back and bilateral lower extremity pain HISTORY OF PRESENT ILLNESS: 75-year-old female presents with history of pain low back bilateral lower extremities for many years worse over the past year or so not result of any specific injury or accident that she is aware of but is having significant pain in the low back itself rating the bilateral posterior gluteus posterior lateral thighs and lateral anterior thighs. Patient reports is worse with walking standing changing positions she has been trying to walk her dog to stay in some physical activity but is becoming more difficult. Patient reports she is doing stretching and strength and exercise on her own but had no formal physical therapy or chiropractic treatments or other treatments at this time. Patient reports generally does not awaken her from sleep at night feels much better with laying down or sitting down can affect her bowel bladder control but no incontinence is some increased urgency patient reports it does affect her ability to walk using a cane which she has with her today and uses in her right hand. He did have some plain films of the lumbar spine showing severe multilevel degenerative change along the lumbar spine with anterolisthesis of L4 and L5 and to lesser extent L3 on L4 with severe degenerative endplate remodeling and facet arthropathy in the mid to lower lumbar levels. Patient rates her disability rating 0-10 10 being worst is a 5 with family responsibilities and recreation social activity occupation 1 assessment he was apparently support activities. Patient been taking hydrocodone which does decrease the pain to moderate extent she is not tried any other medications at this time. PAST MEDICAL HISTORY: PMH: Hypertension, arthritis, dizziness, neuropathy PREVIOUS SURGERIES: Past Surgical Hx: Left hip replacement April 2020, cataract extraction 2018, hysterectomy 1985 CURRENT MEDICATIONS: Current Meds: Active Scripts Medications Dose Route/Sig Max Daily Dose Days Date Category Omeprazole 20 Mg Capsule.dr 1 Cap PO HS 10/17/20 Reported Potassium Chloride (Potassium Chloride) 10 Meq Tab.sr.24h 8 Meq PO DAILY 05/01/20 Reported Mucinex (Guaifenesin) 600 Mg Tablet.er 800 Mg PO BID 05/01/20 Reported Walworth-3 (Walworth-3 Fatty Acids) 1,000 Mg Capsule 1,000 Mg PO DAILY 05/01/20 Reported Magnesium Oxide 400 Mg Tablet 400 Mg PO DAILY 05/01/20 Reported Hydrochlorothiazide Tablet (Hydrochlorothiazide) 25 Mg Tablet 25 Mg PO DAILY 05/01/20 Reported Fluoxetine Hcl 40 Mg Capsule 40 Mg PO DAILY 05/01/20 Reported Cyclobenzaprine Hcl 10 Mg Tablet 10 Mg PO BID 05/01/20 Reported Multiple Vitamins (Multivitamin) 1 Each Tablet 1 Each PO DAILY 05/01/20 Reported Coq-10 (Ubidecarenone) 30 Mg Capsule 30 Mg PO DAILY 05/01/20 Reported Amlodipine Besylate 10 Mg Tablet 10 Mg PO DAILY 05/01/20 Reported Ventolin Hfa Inhaler (Albuterol Sulfate) 18 Gm Hfa.aer.ad 2 Puff INH PRN Q4-6HRS PRN 05/01/20 Reported Advair 100-50 Diskus (Fluticasone/Salmeterol) 1 Each Disk.w.dev 1 Inh IH BID 05/01/20 Reported Lyrica (Pregabalin) 150 Mg Capsule 150 Mg PO TID 30 05/01/20 Reported Losartan Potassium 100 Mg Tablet 100 Mg PO DAILY 05/01/20 Reported Lidocaine 1 Each Adh..patch 1 Each TP PRN DAILY PRN 05/01/20 Reported ALLERGIES; Allergies: Coded Allergies: No Known Drug Allergies (Unverified , 04/23/16) FAMILY HISTORY: Family Hx: Heart disease and strokes SOCIAL HISTORY: Social Hx: Patient quit smoking 20 years ago drinks about 2 beers 3 times a week does not use any illegal illicit recreational drugs is single lives locally in [facility] and is currently retired REVIEW OF SYSTEMS: ROS: Positive for those items mentioned in history of present illness, all systems are reviewed, otherwise negative ,and are complete full and well-documented on patient's chart. PHYSICAL EXAM: VS: Blood pressure is 160/85 pulse 78 respirations 16 temperature is 98.1 F height is 5 foot 6 inches weight is 206 pounds PE: PHYSICAL EXAMINATION: GENERAL: The patient is awake, alert, oriented, appropriate, very pleasant demeanor HEENT: Shows normocephalic, atraumatic. Extraocular movements are intact and symmetrical. Oral cavity: Mucous membranes moist and pink. NECK: Shows anterior throat supple without palpable lymphadenopathy noted. Swallow reflex symmetrical. CHEST: Shows normal on inspection. Breath sounds are clear bilaterally, no rales rhonchi or wheezes auscultated. HEART: Shows S1, S2 clear. No murmurs auscultated. ABDOMEN: Soft, nontender, nondistended, obese. No palpable organomegaly is noted. No rebound or guarding demonstrated. BACK: Shows spine grossly in the midline. Normal-appearing cervical lordotic curvature. There is slightly increased thoracic kyphosis, some minor flattening of the lumbar lordotic curvature. Lumbar paraspinous muscles show symmetrical on inspection, on palpation shows some moderate tenderness diffusely throughout the upper, middle and lower distribution of the paraspinous muscles bilaterally and also into the lower thoracic paraspinous musculature, firm and tender, but without specific trigger points, without radiation of pain. The patient has good rotational motion of the lumbar spine, both laterally as well as extension and flexion without significant difficulty. No tenderness over the spinous processes, sacrum or sacroiliac regions. EXTREMITIES: Lower extremities show deep tendon reflexes 2+ in the patellar and tendo calcaneus tendons. Motor exam is 4 on a scale of 5 with right dorsiflexion, extension, quadriceps and hamstring flexion and 4/5 on the left. Peripheral pulses are 1+ posterior tibial. No peripheral edema is noted bilaterally. Lower extremities are warm and dry to touch, equal in color and appearance. Straight leg raise noted to be negative bilaterally. Gaenslen's and Jaime's maneuvers are [] as well. The patient is able to stand, stand on her toes walks with a slight favoring gait does appear to favor the right lower extremity slightly is using a cane in her right hand ambulate. SKIN: Shows warm and dry, good turgor. No edema. No sores, rashes or bruising throughout. IMPRESSION: Impression: 75-year-old female with long history low back pain bilateral lower extremity pain and radicular fashion. Plain films lumbar spine as noted Arthritis Hypertension Plan: Options were discussed with patient including conservative medical management physical therapies and interventional techniques. Patient would like to pursue dimensional techniques. We discussed a lumbar epidural steroid inje ction using descriptions as well as anatomical models to describe the procedure. Risks were discussed including but not limited to: Bleeding, infection, possibility of epidural hematoma and subsequent neurological compromise, dural puncture, headaches, spinal cord and/or nerve damage, side effects of steroid medication, and poor results regarding pain control. Patient understands and wished to proceed. Patient will return to clinic in approximate 2 weeks for follow-up, was counseled as return appointment the following side effects to be aware of. Procedure is lumbar epidural steroid injection under local anesthetic using sterile prep and drape at the L4-5 level using C-arm fluoroscopic guidance in both AP and lateral views medications injected is 120 mg Depo-Medrol +10mL preservative-free normal saline and 2 mL contrast- condition at discharge is stable patient tolerated procedure well had no complications. RAOUL AYALA MD Oct 17, 2020 13:28
== END | disposition home or self-care (01) ==
LOC: PNCL 10:13
PROVIDERS: ATTEND Anesthesiology
DX: M54.5 Low back pain (principal); M79.605 Pain in left leg; M79.604 Pain in right leg; I10 Essential (primary) hypertension; M19.90 Unspecified osteoarthritis, unspecified site; E78.00 Pure hypercholesterolemia, unspecified; F32.9 Major depressive disorder, single episode, unspecified; Z90.710 Acquired absence of both cervix and uterus; Z98.890 Other specified postprocedural states; Z82.49 Family history of ischemic heart disease and other diseases of the circulatory system; Z87.891 Personal history of nicotine dependence; Z72.89 Other problems related to lifestyle
CPT/HCPCS: 62323; J1030; J1040; Q9965

== ENCOUNTER → 2020-10-31 | Outpatient (CLI) | payer MEDICARE ==
--- NOTE | 2020-10-31 10:43 | PDOC ---
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 Patient reports about 50% improvement pain in the left leg is resolved completely still has pain in the right leg however rating the posterior gluteus posterior lateral thigh lateral anterior thigh anteromedial thigh medial lower leg into the calf patient reports is cramping radiating on and off in intensity rated an 8 on a scale of 10 at its worst over the past week 5 on average 3 at its least is a 5 today. Patient reports she been increasing activity doing much better with walking doing household activities travel with greater ease still better with sitting or laying down does not awaken her from sleep at night patient reports no bowel or bladder incontinence or other motor loss. We had discussed adding new medication of anti-inflammatory meloxicam and patient would like to proceed with that as she does have some generalized arthritic complaints as well in the hips and knees and we will give her meloxicam once daily 15 mg with instructions side effects beware of discussed as well. Physical Exam: VS: Blood pressure was 141/75 pulse 77 respirations 18 temperature is 98.1 F weight is 267 pounds PE: PHYSICAL EXAMINATION: GENERAL: The patient is awake, alert, oriented, appropriate, very pleasant in demeanor. HEENT: Shows normocephalic, atraumatic. Extraocular movements are intact and symmetrical. Oral cavity: Mucous membranes moist and pink. NECK: Shows anterior throat supple without palpable lymphadenopathy noted. Swallow reflex symmetrical. CHEST: Shows normal on inspection. Breath sounds are clear bilaterally, no rales or rhonchi or wheezes. HEART: Shows S1, S2 clear. No murmurs auscultated. ABDOMEN: Soft, nontender, nondistended, obese. No palpable organomegaly is noted. BACK: Shows spine grossly in the midline. Normal-appearing cervical lordotic curvature. There is increased thoracic kyphosis, some flattening of the lumbar lordotic curvature. Lumbar paraspinous muscles show symmetrical on inspection, on palpation shows some moderate tenderness diffusely throughout the upper, middle and lower distribution of the paraspinous muscles, but without specific trigger points, without radiation of pain. The patient has good rotational motion of the lumbar spine, both laterally as well as extension and flexion without significant difficulty. No tenderness over the spinous processes, sacrum or sacroiliac regions. EXTREMITIES: Lower extremities show deep tendon reflexes 2+ in the patellar and tendo calcaneus tendons. Motor exam is 4 on a scale of 5 with right dorsiflexion, extension, quadriceps and hamstring flexion and 4/5 on the left. Peripheral pulses are 1+ posterior tibial. No peripheral edema is noted bilaterally. Lower extremities are warm and dry to touch, equal in color and appearance. SKIN: Shows warm and dry, good turgor. No edema. No sores, rashes or bruising throughout. Procedure: Procedure: Options were discussed with patient. Patient chart reviews her current medication regimen updated current review of systems updated today as well. We will proceed with a lumbar epidural steroid injection today as a second in the series with fluoroscopic guidance. Risks were discussed including but not limited to: Bleeding, infection, possibility of epidural hematoma and subsequent neurological compromise, dural puncture, headaches, spinal cord and/or nerve damage, side effects of steroid medication, and poor results regarding pain control. Patient understands and wished to proceed. Patient will return to the clinic in approximate 2 weeks for follow-up, was counseled as to return appointment activity level and side effects to be aware of. Medication Injected: Med Injected: Procedure is lumbar epidural steroid injection under local anesthetic using sterile prep and drape at the L4-5 level using C-arm fluoroscopic guidance in both AP and lateral views medications injected is 120 mg Depo-Medrol +10mL preservative-free normal saline and 2 mL contrast- condition at discharge is stable patient tolerated procedure well had no complications. Condition at Discharge: Condition at Discharge: Condition at discharge stable, patient alert the procedure well and had no complications. RAOUL AYALA MD Oct 31, 2020 10:43
--- NOTE | 2020-10-31 10:44 | PDOC4 ---
Procedure Note: ICD 10 Code: ICD 10 Code: M54.16 M 47.86 M51.36 Procedure Note: Patient was consented for lumbar epidural steroid injection with fluoroscopic guidance. Risks were discussed including but not limited to: Bleeding, infection, possibility of epidural hematoma and subsequent neurological compromise, dural puncture, headaches, spinal cord and/or nerve damage, side effects of steroid medication, and poor results regarding pain control. Patient understands and wished to proceed. Procedure is lumbar epidural steroid injection under local anesthetic using ster ile prep and drape at the L4-5 level using C-arm fluoroscopic guidance in both AP and lateral views medications injected is 120 mg Depo-Medrol +10mL preservative-free normal saline and 2 mL contrast- condition at discharge is stable patient tolerated procedure well had no complications. RAOUL AYALA MD Oct 31, 2020 10:44
== END | disposition home or self-care (01) ==
LOC: PNCL 09:31
PROVIDERS: ATTEND Anesthesiology
DX: M51.16 Intervertebral disc disorders with radiculopathy, lumbar region (principal); M48.061 Spinal stenosis, lumbar region without neurogenic claudication; M47.816 Spondylosis without myelopathy or radiculopathy, lumbar region; I10 Essential (primary) hypertension; E78.00 Pure hypercholesterolemia, unspecified; K21.9 Gastro-esophageal reflux disease without esophagitis; F32.9 Major depressive disorder, single episode, unspecified; Z90.710 Acquired absence of both cervix and uterus; Z98.890 Other specified postprocedural states; Z79.899 Other long term (current) drug therapy; Z87.891 Personal history of nicotine dependence; Z72.89 Other problems related to lifestyle
CPT/HCPCS: 62323; J1030; J1040; Q9965